=== PATIENT | female | born 1980 | race Caucasian/White ===

== ENCOUNTER 2016-10-16 22:40 | Day surgery (SDC) | payer OTHER, SELFPAY ==
[~2016-10-16 22:40] MED LIST: PRENATAL VITAMI1 TAB
[2016-10-16 23:48] LABS: BASO % 0.2 % (0-2); EOS % 0.4 % (0-7); EOSINOPHIL ABSOLUTE COUNT 0.1 tho/cmm (0.0-0.7); HCT-HEMATOCRIT 36.8 % (34.0-49.0); HGB-HEMOGLOBIN 12.4 gm/dl (12.0-15.5); IMMATURE GRANULOCYTES ABSOLUTE 0.02 tho/cmm (0-0.03); IMMATURE GRANULOCYTES PERCENT 0.2 % (0-0.3); LYMPH % 9.1 % (20-45); LYMPH ABSOLUTE COUNT 1.1 tho/cmm (0.8-4.5); MCH (MEAN CORPUSCULAR HGB) 28.6 pg (28.0-32.0); MCHC MEAN CORPUSCULAR HGB CONC 33.7 % (32.0-36.0); MEAN PLATELET VOLUME 9.1 cmc (9.4-12.4); MONO % 9.4 % (0-12); MONOCYTE ABSOLUTE COUNT 1.1 tho/cmm (0.0-1.2); NEUTROPHIL ABSOLUTE COUNT 9.5 tho/cmm (1.6-8.0); NEUTROPHIL-AUTOMATED 9.5 tho/cmm (1.6-8.0); NEUTROPHILS % 80.7 % (40-80); PLATELET COUNT 316 tho/cmm (150-450); RED BLOOD COUNT 4.33 mil/cmm (4.00-5.20); RED CELL DISTRIBUTION WIDTH 12.7 % (12.4-16.4); WHITE BLOOD COUNT 11.7 tho/cmm (4.0-10.0)
[2016-10-17 00:11] LABS: ALB/GLOB RATIO 0.8 (0.8-2.0); ALBUMIN 3.5 g/dl (3.5-5.0); ALKALINE PHOSPHATASE 62 U/L (33-138); ALT/SGPT 22 U/L (12-78); ANION GAP 12 mmol/L (0-20); AST/SGOT 22 U/L (10-40); BILIRUBIN,TOTAL 0.3 mg/dl (0-1.5); BLOOD UREA NITROGEN 11 mg/dl (6-24); CARBON DIOXIDE-VENOUS 27 mmol/L (22-32); CHLORIDE 103 mmol/l (96-110); CREATININE 0.94 mg/dl (0.50-1.10); GLUCOSE 106 mg/dL (70-110); LIPASE 93 U/L (73-393); SODIUM 138 mmol/L (135-145); eGFR VALUE FOR BLACK >90 mL/Min
[2016-10-17 00:34] LABS: PREGNANCY-SERUM NEGATIVE (NEGATIVE)
[2016-10-17 01:48] LABS: URINE BILIRUBIN NEGATIVE (NEG); URINE BLOOD LARGE (NEG); URINE GLUCOSE (UA) NEGATIVE (NEG); URINE KETONE NEGATIVE (NEG); URINE LEUKOCYTE ESTERASE NEGATIVE (NEG); URINE NITRITE NEGATIVE (NEG); URINE PROTEIN NEGATIVE (NEG)
[2016-10-17 02:37] LABS: URINE APPEARANCE HAZY; URINE COLOR YELLOW
[2016-10-17 02:39] LABS: URINE BACTERIA 1+; URINE RBC 0-1 /[HPF] (0-5); URINE WBC 0 /[HPF] (0-5)
[2016-10-18] MEDS ORDERED: NORCO 5-325 TA1 EACH PO (18:08)
[2016-10-18] MEDS ORDERED: IBUPROFEN800 M1 PO (18:10)
[2016-10-18] MEDS ORDERED: SIMETHICONE80 M3 PO (18:11)
== END 2016-10-18 19:49 ==
LOC: EDMED 22:40 → EMR2 10-17 02:36 → CAR1 10-17 02:39 → PACU 10-17 07:46 → CAR1 10-17 08:20
PROVIDERS: Emergency Medicine
PROC: 0DTJ4ZZ Resection of Appendix, Percutaneous Endoscopic Approach (ICD-10-PCS; principal; 2016-10-17)
DX: K35.80 Unspecified acute appendicitis (principal); Z79.899 Other long term (current) drug therapy; Z87.442 Personal history of urinary calculi; Z98.890 Other specified postprocedural states
CPT/HCPCS: G0378; J1335; J2270; J2405; J2543; J7030